=== PATIENT | female | born 1995 | race Caucasian/White ===

== ENCOUNTER 2017-05-25 06:59 | Day surgery (SDC) | payer BC ==
[~2017-05-25] VITALS: Ht 160 cm; Wt 95.3 kg
[~2017-05-25 06:59] MED LIST: NUVARING; [UNRECOGNIZED DRUG - OTHER]
[2017-05-25 07:52] LABS: HEMATOCRIT 39.7 % (36.0-48.0); HEMOGLOBIN 12.7 g/dL (12-16); MCH 26.1 pg (26.0-34.0); MCV 81.7 fL (80.0-100.0); MEAN PLATELET VOLUME 9.9 fL (7.4-10.4); RBC 4.86 10x6/uL (4.00-5.40); RDW 12.9 % (11.5-14.5); WBC 6.3 10x3/uL (4.8-10.8)
[2017-05-25] MEDS ORDERED: TOPAMAX25 MG PO (08:32)
[2017-05-25 08:37] VITALS: BP 105/69; Ht 160 cm; Wt 95.3 kg
[2017-05-25 08:42] LABS: HCG URINE NEGATIVE (NEGATIVE)
--- NOTE | 2017-05-25 11:15 | NUR ---
RECEIVED PT FROM OR WITH T&A, NO RESP DIFFICULTY.
--- NOTE | 2017-05-25 11:33 | HP ---
PATIENT: DEJUAN LIANG MEDICAL RECORD: [id number] ACCOUNT: [id number] LOCATION:[facility] : 96 ADMISSION DATE: 05/25/17 HISTORY AND PHYSICAL EXAMINATION HISTORY OF PRESENT ILLNESS: Dejuan is 22 years old. She has had problems with recurring strep pharyngitis. She is being admitted for tonsillectomy and adenoidectomy. PAST MEDICAL HISTORY: Otherwise negative. PAST SURGICAL HISTORY: None. CURRENT MEDICATIONS: Spironolactone, topiramate, NuvaRing. ALLERGIES: No known drug allergies. PHYSICAL EXAMINATION: GENERAL: She is a healthy-appearing good historian, normal voice. FACE: Normal, symmetric, no lesions. EYES: Sclerae and conjunctivae are normal. EARS: Canals and TMs are normal. NOSE: No masses, polyps or drainage. ORAL CAVITY AND OROPHARYNX: A 4+ cryptic tonsils. Normal palate. NECK: No masses. She has a small jugulodigastric adenopathy bilaterally. CHEST: Clear. CARDIOVASCULAR: Regular rate and rhythm, no murmur. EXTREMITIES: Normal. IMPRESSION: Chronic pharyngitis. PLAN: Tonsillectomy and adenoidectomy and we can draw blood for a RAST at that time. TRANSINT:[id number] Voice Confirmation ID: [id number] DOCUMENT ID: [id number] ZACK VILLASENOR MD at 1133 CC: [id number] DICTATION DATE: 05/24/17 1001 [employer] WORKER: 05/24/17 1041 [facility] [address] [place] [address]
--- NOTE | 2017-05-29 12:55 | OP ---
PATIENT NAME: DEJUAN LIANG MEDICAL RECORD: [id number] :96 LOCATION:[facility] ADMISSION DATE: SURGEON: ZACK VILLASENOR MD DATE OF OPERATION: 05/25/2017 PREOPERATIVE DIAGNOSIS: Chronic pharyngitis. POSTOPERATIVE DIAGNOSIS: Chronic pharyngitis. PROCEDURE: Tonsillectomy and adenoidectomy. SURGEON: Zack Villasenor MD ANESTHESIA: General orotracheal. BLOOD LOSS: Less than 5 cc. SPECIMENS: Right and left tonsil. COMPLICATIONS: None. DISPOSITION: Recovery stable. PROCEDURE NOTE: She is brought to the operating room and placed in supine position, sedated and intubated by anesthesia. The eyes were taped. The table was turned 90 degrees. A head drape was applied and she was positioned for tonsillectomy. Using a headlight, a Jaelyn-Juan mouth gag was carefully inserted and elevated on a towel on the chest. The palate was examined and palpated. It was normal. A red rubber catheter was placed through right side of the nose into the pharynx and grasped with tonsil clamp to retract the soft palate. Using a mirror, the nasopharynx was examined. Suction cautery on a setting of 35 was used to ablate and suction the adenoid pad with no significant bleeding. The red rubber catheters let down and removed. The right tonsil was grasped at the superior pole with a straight Allis clamp. Spatula tip cautery on a setting of 9 was used to dissect out the tonsil along its capsule, preserving the anterior and posterior tonsillar pillars. The left tonsil was removed in the same fashion. Then, both sides of the nose were irrigated with saline. The pharynx was suctioned. Tonsillar fossae were agitated. Suction cautery on a setting of 20 was used to control minimal oozing. With the field clean and dry, the Jaelyn-Juan mouth gag was let down and removed. She was awakened, extubated, and transported to recovery in good condition. No complications. TRANSINT:[id number] Voice Confirmation ID: [id number] DOCUMENT ID: [id number] ZACK VILLASENOR MD at 1255 CC: [id number] DICTATION DATE: 05/25/17 1332 [employer] PROGRAMMER: 05/25/[address] [facility] 05/25/17 [facility] [address] [id number]
== END 2017-05-25 13:10 | disposition home or self-care (01) ==
LOC: D.OPS 06:59 → D.PAN 07:30 → D.OPS 07:30 → D.PAN 10:15 → D.OPS 13:10
PROVIDERS: Anesthesiology; Otolaryngology
DX: J35.01 Chronic tonsillitis (principal)